=== PATIENT | male | born 1950 | race Caucasian/White ===

== ENCOUNTER 2017-05-30 15:59 | Emergency (ER) | payer BC ==
[~2017-05-30] VITALS: Wt 91.0 kg
[2017-05-30] MEDS ORDERED: ONDANSETRON (ODT) 4 MG TAB ODT STA (16:53)
[2017-05-30] MEDS ORDERED: KETOROLAC 30 MG INJ IM STA (16:53)
[2017-05-30] MEDS ORDERED: CYCL-319 PO (16:55)
[2017-05-30] MEDS ORDERED: NAPR-260 PO (16:56)
[2017-05-30] MEDS ORDERED: HYDR-906 PO (16:57)
[2017-05-30] MEDS ORDERED: HYDROCODONE/APAP (5/325) TAB PO ONE (17:00)
--- NOTE | 2017-05-31 00:04 | ERD ---
ER Documentation Chief Complaint Date/Time DATE: 05/31/17 TIME: 00:01 Chief Complaint CHRONIC BACK PAIN, NO RECENT INJURY HPI This patient is a 66-year-old male presenting to the emergency department with complaints of acute exacerbation of chronic back pain. This occurred approximately 5 days ago. The patient was bending over and then he felt a pop in his back, stood up quickly and then felt extreme pain. The patient states aggravating factors include ambulation. Alleviating factors include rest. The patient is taken no medication for relief of symptoms. The patient denies any tingling, numbness in the legs, loss of bowel or bladder function, fevers, chills, or other symptoms. ROS All systems reviewed and are negative except as per history of present illness. Medications Home Meds Active Scripts Hydrocodone/Acetaminophen (Orange 5-325 Tablet) 1 Each Tablet, 1 TAB PO Q6H Y for PAIN, #7 TAB Prov:FABRICE VARGAS PA-C 05/30/17 Naproxen* (Naprosyn*) 500 Mg Tablet, 500 MG PO BID Y for PAIN AND/OR INFLAMMATION, #30 TAB Prov:FABRICE VARGAS PA-C 05/30/17 Cyclobenzaprine Hcl* (Cyclobenzaprine Hcl*) 10 Mg Tablet, 10 MG PO TID, #15 TAB Prov:FABRICE VARGAS PA-C 05/30/17 Allergies Allergies: Coded Allergies: No Known Allergy (Unverified , 05/30/17) PMhx/Soc History of Surgery: No Anesthesia Reaction: No Hx Neurological Disorder: No Hx Respiratory Disorders: No Hx Cardiac Disorders: Yes (HTN) Hx Psychiatric Problems: No Hx Miscellaneous Medical Probl: Yes (gout) Hx Alcohol Use: Yes Hx Substance Use: Yes (marijuana) Hx Tobacco Use: Yes Smoking Status: Current every day smoker Physical Exam Vitals Vital Signs Date Time Temp Pulse Resp B/P Pulse Ox O2 Delivery O2 Flow Rate FiO2 05/30/17 16:02 97.8 64 18 153/78 98 Physical Exam Const: Nontoxic, well-nourished male in mild distress secondary to pain. Head: Atraumatic Eyes: Normal Conjunctiva ENT: Normal External Ears, Nose and Mouth. Neck: Full range of motion..~ No meningismus. Resp: Clear to auscultation bilaterally Cardio: Regular rate and rhythm, no murmurs Abd: Soft, non tender, non distended. Normal bowel sounds Skin: No petechiae or rashes Back: Positive straight leg raise bilaterally. No step-offs noted. No midline tenderness. Ext: No cyanosis, or edema Neur: Awake and alert Psych: Normal Mood and Affect Results 24 hrs Current Medications Medications (Trade) Dose Ordered Sig/Nikole Route PRN Reason Start Time Stop Time Status Last Admin Dose Admin Acetaminophen/ Hydrocodone Bitart (Orange (5/325)) 1 tab ONCE ONCE PO 05/30/17 17:00 05/30/17 17:01 DC 05/30/17 17:13 Ketorolac Tromethamine (Toradol) 30 mg ONCE STAT IM 05/30/17 16:53 05/30/17 16:54 DC 05/30/17 17:13 Ondansetron HCl (Zofran Odt) 4 mg ONCE STAT ODT 05/30/17 16:53 05/30/17 16:54 DC Procedures/MDM 66-year-old male presents to the emergency department with complaints of low back pain after injury approximately 5 days ago. On physical examination the patient's blood pressure was slightly elevated at 153/78. Patient's blood pressure was elevated (>120/80) but appears stable without evidence of hypertension emergency or urgency. The patient was counseled about the risks of hypertension and urged to pursue outpatient monitoring and therapy within a week with their primary care physician. There was bilateral positive straight leg raise. The patient was medicated in the department and was feeling improved on reevaluation. The patient stable for outpatient management with a prescription for Orange, naproxen, and Flexeril. The patient agreed with the discharge plan and diagnosis. Questions and concerns were addressed. I low suspicion for cauda equina, epidural abscess , spinal fracture, or other emergent conditions. Close follow-up with a primary care physician was advised. Strict ER return precautions were discussed. Departure Diagnosis: Primary Impression: Lumbar strain Condition: Fair Patient Instructions: Causes of Lumbar (Low Back) Pain Referrals: [facility] YOU HAVE RECEIVED A MEDICAL SCREENING EXAM AND THE RESULTS INDICATE THAT YOU DO NOT HAVE A CONDITION THAT REQUIRES URGENT TREATMENT IN THE EMERGENCY DEPARTMENT. FURTHER EVALUATION AND TREATMENT OF YOUR CONDITION CAN WAIT UNTIL YOU ARE SEEN IN YOUR DOCTORS OFFICE WITHIN THE NEXT 1-2 DAYS. IT IS YOUR RESPONSIBILITY TO MAKE AN APPOINTMENT FOR FOLOW-UP CARE. IF YOU HAVE A PRIMARY DOCTOR --you should call your primary doctor and schedule an appointment IF YOU DO NOT HAVE A PRIMARY DOCTOR YOU CAN CALL OUR PHYSICIAN REFERRAL HOTLINE AT IF YOU CAN NOT AFFORD TO SEE A PHYSICIAN YOU CAN CHOSE FROM THE FOLLOWING [facility] [id number] [facility] [address] [facility] [facility] [address] [facility] [address] [facility] [address] [facility] [facility] [address] Additional Instructions: Follow up with your PCP within the next 1-3 days for a repeat evaluation and a possible referral to a specialist, if required. Return the the emergency department immediately if symptoms worsen or change. If you have any questions regarding medications, ask your pharmacist or us before you leave. If any adverse reactions, occur while taking your medications, discontinue the treatment and return to the emergency department immediately. If any new or worsening symptoms, uncontrolled fevers, or other unexplained symptoms occur, return to the emergency department immediately. Take your medications as directed, and complete the entire course of treatment. FABRICE VARGAS PA-C May 31, 2017 00:03
== END 2017-05-30 17:31 | disposition home or self-care (01) ==
LOC: FTE 15:59
DX: S39.012A Strain of muscle, fascia and tendon of lower back, initial encounter (principal); I10 Essential (primary) hypertension; F17.210 Nicotine dependence, cigarettes, uncomplicated; X50.9XXA Other and unspecified overexertion or strenuous movements or postures, initial encounter; Y92.9 Unspecified place or not applicable
CPT/HCPCS: 96372; J1885